=== PATIENT | female | born 1945 | race Caucasian/White ===

== ENCOUNTER → 2021-09-02 | Outpatient (CLI) | payer OTHER | END | disposition home or self-care (01) | LOC: MRI 08:50 | PROVIDERS: ATTEND Podiatrist | DX: M19.071 Primary osteoarthritis, right ankle and foot (principal); M72.2 Plantar fascial fibromatosis; M77.31 Calcaneal spur, right foot ==

== ENCOUNTER → 2022-05-04 | Outpatient (CLI) | payer OTHER | END | disposition home or self-care (01) | LOC: MAMMO 01:49 | PROVIDERS: ATTEND Internal Medicine | DX: Z12.31 Encounter for screening mammogram for malignant neoplasm of breast (principal); N63.11 Unspecified lump in the right breast, upper outer quadrant ==

== ENCOUNTER → 2022-05-16 | Outpatient (CLI) | payer OTHER | END | disposition home or self-care (01) | LOC: US 04:20 | PROVIDERS: ATTEND Internal Medicine | DX: R92.8 Other abnormal and inconclusive findings on diagnostic imaging of breast (principal); N63.11 Unspecified lump in the right breast, upper outer quadrant ==

== ENCOUNTER → 2022-07-04 | Outpatient (CLI) | payer OTHER | END | disposition home or self-care (01) | LOC: RAD 12:03 | PROVIDERS: ATTEND Internal Medicine | DX: R06.02 Shortness of breath (principal); I70.0 Atherosclerosis of aorta ==

== ENCOUNTER → 2022-07-14 | Outpatient (CLI) | payer OTHER | END | disposition home or self-care (01) | LOC: RAD 00:59 | PROVIDERS: ATTEND Internal Medicine | DX: S92.901D Unspecified fracture of right foot, subsequent encounter for fracture with routine healing (principal); M85.852 Other specified disorders of bone density and structure, left thigh; N95.1 Menopausal and female climacteric states; M85.9 Disorder of bone density and structure, unspecified; X58.XXXD Exposure to other specified factors, subsequent encounter ==

== ENCOUNTER 2022-08-31 10:19 | Emergency (ER) | payer OTHER ==
[~2022-08-31] VITALS: Wt 61.2 kg
[2022-08-31 12:02] LABS: BASO % 0.8 % (0.0-1.0); EOS # 0.1 10*3/uL (0.0-0.4); EOS % 1.7 % (1.0-4.0); HEMATOCRIT 44.7 % (37.0-47.0); MEAN CELL VOLUME 88.2 fl (81.0-99.0); MEAN CORPUSCULAR HGB 30.4 pg (27.0-31.0); MEAN CORPUSCULAR HGB CONC 34.5 g/dl (33.0-37.0); MEAN PLATELET VOLUME 11.3 fl (9.6-12.3); MONO # 0.5 10*3/uL (0.1-1.0); MONO % 8.7 % (3.0-9.0); NEUT # 2.7 10*3/uL (2.3-7.9); NEUT % 51.6 % (47.0-73.0); PLATELET COUNT AUTOMATED 256 10*3/uL (130-400); RED BLOOD COUNT 5.07 10*6/uL (4.10-5.10); RED CELL DISTRI WIDTH 13.2 % (0-14.5); WHITE BLOOD COUNT 5.3 10*3/uL (4.8-10.8)
[2022-08-31 12:55] LABS: ALKALINE PHOSPHATASE 77 U/L (46-116); BUN 16 mg/dl (9-23); CHLORIDE 108 mmol/L (98-107); LIPASE 56 U/L (12-53); POTASSIUM 3.9 mmol/L (3.4-5.1); TOTAL PROTEIN 6.7 gm/dL (6.0-8.0)
[2022-08-31 12:56] LABS: ACT PARTIAL THROMBO TIME 26.8 SECONDS (20.0-32.1)
[2022-08-31 12:58] LABS: SGPT/ALT < 7 U/L (10-49)
[2022-08-31 15:01] LABS: BILIRUBIN Negative (Negative); BLOOD Negative (Negative); CLARITY Clear (Clear); COLOR Yellow (Yellow); GLUCOSE Negative (Negative); KETONE Negative (Negative); LEUKO ESTERASE 1+ (Negative); NITRITE Negative (Negative); PH 7.5 (4.5-8.0); UROBILINOGEN 0.2 E.U./dl (0.0-1.0)
[2022-08-31 15:11] LABS: BACTERIA 2+; RBC 0-2 rbc/hpf (0-2)
[2022-08-31] MEDS ORDERED: CEPHALEXIN500 M1 PO (15:46)
[2022-08-31] MEDS ORDERED: ANTIVERT25 M2 PO (15:46)
[2022-08-31] MEDS ORDERED: ATIVAN1 MG PO (15:46)
[2022-08-31] MEDS ORDERED: ATIVAN0.5 MG PO (15:47)
== END 2022-08-31 16:17 | disposition home or self-care (01) ==
LOC: ED 10:19
PROVIDERS: Physician Assistant
DX: N39.0 Urinary tract infection, site not specified (principal)

== ENCOUNTER 2023-10-23 12:53 | Emergency (ER) | payer OTHER ==
[~2023-10-23] VITALS: Ht 162.5 cm; Wt 63.0 kg
[~2023-10-23 12:53] MED LIST: ANTIVERT25 M2 PO; ATIVAN0.5 MG PO; ATIVAN1 MG PO; CEPHALEXIN500 M1 PO
[2023-10-23] MEDS ORDERED: LOSARTAN POTAS100 M1 PO (13:57)
[2023-10-23] MEDS ORDERED: AMLODIPINE BESYL5 MG PO (13:57)
[2023-10-23] MEDS ORDERED: ATORVASTATIN CA10 M1 PO (13:57)
[2023-10-23] MEDS ORDERED: methylPREDNISolone sod succ 125 MG VIAL IM ONE (14:15)
[2023-10-23] MEDS ORDERED: PREDNISONE20 M1 PO (14:16)
== END 2023-10-23 14:35 | disposition home or self-care (01) ==
LOC: ED 12:53
DX: L25.9 Unspecified contact dermatitis, unspecified cause (principal)